=== PATIENT | male | born 1965 | race Caucasian/White ===

== ENCOUNTER 2019-07-18 05:57 | Emergency (ER) | payer SELFPAY ==
[~2019-07-18] VITALS: Ht 188 cm; Wt 111.1 kg
[2019-07-18 05:58] VITALS: BP_SYST 170
--- NOTE | 2019-07-18 06:00 | NUR ---
Patient to ER bed 5 for evaluation. Side rails up. Report given to Lucy GARZA.
--- NOTE | 2019-07-18 06:15 | NUR ---
Pt 54 yo male BIB BLS C/O generalized abdominal pain radiating to flank and back and nausea/vomiting since 2300 last night. Pt states he ate "[employer] last night" shortly before symptoms started. Pain is 10/10 with no alleviating factors. Denies any CP, SOB, or any other symptoms at this time. Will continue to monitor.
[2019-07-18] MEDS ORDERED: MORPHINE 4 MG/ML INJ. SYRINGE IM ONE (06:30)
[2019-07-18] MEDS ORDERED: NACL 0.9% 1,000 ML IV ONE (06:30)
[2019-07-18] MEDS ORDERED: ONDANSETRON HCL 4 MG/2 ML VIAL IVP ONE (06:30)
--- NOTE | 2019-07-18 06:30 | NUR ---
ER at bedside examining patient.
[2019-07-18 07:19] LABS: BASOPHILS % (AUTO) 0.5 % (0.0-2.0); EOSINOPHILS # (AUTO) 0.1 K/uL (0.0-0.4); HEMATOCRIT 48.2 % (36-54); HEMOGLOBIN 16.8 g/dL (14.0-18.0); LYMPHOCYTES # (AUTO) 1.4 K/uL (1.0-5.5); LYMPHOCYTES % (AUTO) 15.1 % (20.5-51.5); MEAN CORPUSCULAR HEMOGLOBIN 32 pg (27-31); MEAN CORPUSCULAR HGB CONC 35 % (32-36); MEAN CORPUSCULAR VOLUME 92 fL (79.0-98.0); MONOCYTES # (AUTO) 0.6 K/uL (0.0-1.0); MONOCYTES % (AUTO) 6.3 % (1.7-9.3); NEUTROPHILS % (AUTO) 77.1 % (40.0-70.0); PLATELET COUNT (AUTO) 238 K/uL (130-430); RED BLOOD CELL COUNT(AUTO) 5.27 MIL/uL (4.2-6.2); RED CELL DISTRIBUTION WIDTH 13.2 % (9.0-15.0); WHITE BLOOD COUNT (AUTO) 9.1 K/uL (4.8-10.8)
--- NOTE | 2019-07-18 07:31 | NUR ---
Pt states he is unable to urinate at this time, awared
[2019-07-18 07:36] LABS: CALCIUM 7.5 mg/dL (8.4-11.0); CREATININE 0.71 mg/dL (0.55-1.30)
[2019-07-18 07:38] LABS: PROTHROMBIN TIME 9.9 SECS (9.5-12.5)
[2019-07-18 07:40] LABS: ALBUMIN 3.6 g/dL (3.4-4.8); TOTAL BILIRUBIN 0.8 mg/dL (0.0-1.0)
[2019-07-18 07:48] LABS: POTASSIUM 2.9 mmol/L (3.5-5.1)
--- NOTE | 2019-07-18 08:10 | NUR ---
Per patient pain improving at this time
[2019-07-18] MEDS ORDERED: POTASSIUM CHLORIDE 20 MEQ TAB.PRT.SR PO ONE (09:00)
[2019-07-18 09:30] VITALS: BP_SYST 152
--- NOTE | 2019-07-18 09:30 | NUR ---
Patient given written and verbal discharge instructions and verbalizes understanding. ER MD discussed with patient the results and treatment provided. Patient in stable condition. ID arm band removed. IV catheter removed intact and dressing applied, no active bleeding. Rx of Tramadol, Zofran and Mineral oil given. Patient educated on pain management and to follow up with PMD. Pain Scale 2/10 tolerable for patient . Opportunity for questions provided and answered. Medication side effect fact sheet provided.
== END 2019-07-18 09:30 | disposition home or self-care (01) ==
LOC: SED 05:57
DX: K59.09 Other constipation (principal); R11.2 Nausea with vomiting, unspecified; I10 Essential (primary) hypertension; F17.200 Nicotine dependence, unspecified, uncomplicated
CPT/HCPCS: 36415; 74176; 80053; 82150; 83690; 85025; 85610; 96361; 96374; 96375; 99284; J2270; J2405; J7030; 96372